=== PATIENT | male | born 1960 | race Caucasian/White ===

== ENCOUNTER → 2016-10-23 | Outpatient (CLI) | payer OTHER | END | disposition home or self-care (01) | LOC: RAD 13:13 | PROVIDERS: ATTEND Anesthesiology | DX: Z01.818 Encounter for other preprocedural examination (principal); M47.892 Other spondylosis, cervical region; M48.02 Spinal stenosis, cervical region; M43.12 Spondylolisthesis, cervical region; M41.84 Other forms of scoliosis, thoracic region; M50.323 Other cervical disc degeneration at C6-C7 level; G89.29 Other chronic pain | CPT/HCPCS: 71020; 72050 ==

== ENCOUNTER 2018-10-13 16:36 | Emergency (ER) | payer OTHER ==
[~2018-10-13] VITALS: Ht 182.9 cm; Wt 61.5 kg
[2018-10-13 16:45] VITALS: BP 140/85
[2018-10-13] MEDS ORDERED: PROPARACAINE OPHTH 0.5%, 15ML EACHEYE ONE (17:00)
[2018-10-13] MEDS ORDERED: PROPARACAINE OPHTH 0.5%, 15ML ONE (17:00)
[2018-10-13] MEDS ORDERED: FLUORESCEIN OPHTHALMIC 1 MG STRIP EACHEYE ONE (17:00)
[2018-10-13] MEDS ORDERED: FLUORESCEIN OPHTHALMIC 1 MG STRIP ONE (17:00)
--- NOTE | 2018-10-13 17:05 | NUR ---
THIS IS A 57 YEAR OLD MALE WHO C/O OF THAT HE WAS GRINDING A METAL PIPE YESTERDAY AND GOT METAL IN EYES BILATERAL
--- NOTE | 2018-10-13 17:27 | NUR ---
Patient/Caregiver given discharge instructions and they have confirmed that they understand the instructions. Patient ambulatory with steady gait.
== END 2018-10-13 17:29 | disposition home or self-care (01) ==
LOC: ED 17:20
DX: T15.02XA Foreign body in cornea, left eye, initial encounter (principal); H16.143 Punctate keratitis, bilateral; X58.XXXA Exposure to other specified factors, initial encounter; Y93.89 Activity, other specified; Y92.89 Other specified places as the place of occurrence of the external cause; Y99.8 Other external cause status
CPT/HCPCS: 65222; 99284

== ENCOUNTER 2019-05-15 09:07 | Emergency (ER) | payer OTHER ==
[~2019-05-15] VITALS: Ht 185.4 cm; Wt 64.9 kg
--- NOTE | 2019-05-15 10:11 | NUR ---
CELL GENETICIST: PT TO ROOM FROM LOBBY.
--- NOTE | 2019-05-15 11:30 | NUR ---
pt does have a gold ring on his finger. unable to get off with lube and string. at this time pt does not want to cut it off.
--- NOTE | 2019-05-15 11:30 | NUR ---
pt awaiting mri. mri checklist filled out and sent to mri
--- NOTE | 2019-05-15 12:25 | NUR ---
pt back from mri now
[2019-05-15 13:03] VITALS: BP 123/80
--- NOTE | 2019-05-15 13:03 | NUR ---
REPORT RECEIVED FROM SADU FERNANDEZ. PT S[facility]ING ON [facility]. NADN. VSS. AWARE OF POC. DENIES NEEDS.
--- NOTE | 2019-05-15 13:53 | NUR ---
MD AT BEDSIDE DISCUSSING POC RE: DC NOW.
--- NOTE | 2019-05-15 13:54 | NUR ---
PT GETTING DRESSED FOR DC NOW. WILL AWAIT DISC FROM RADIOLOGY. Addendum: 05/15/19 at 1355 by JUANITO *AWAITING DISC FROM MRI
== END 2019-05-15 14:58 | disposition home or self-care (01) ==
LOC: ED 11:07
DX: M54.12 Radiculopathy, cervical region (principal); R44.9 Unspecified symptoms and signs involving general sensations and perceptions
CPT/HCPCS: 72141; 99284

== ENCOUNTER 2020-12-28 13:47 | Outpatient (CLI) | payer OTHER | END 2020-12-28 23:59 | disposition home or self-care (01) | LOC: RAD 13:47 → EDSTATUS 14:00 → RAD 23:59 | PROVIDERS: ATTEND Physician Assistant | DX: R10.33 Periumbilical pain (principal) | CPT/HCPCS: 76857 ==

== ENCOUNTER 2021-01-07 14:33 | Outpatient (CLI) | payer OTHER ==
[2021-01-07] MEDS ORDERED: OMNIPAQUE 350 MG/ML, 100ML BOTTLE ONE (15:45)
== END 2021-01-07 23:59 | disposition home or self-care (01) ==
LOC: CFH 14:33
PROVIDERS: ATTEND Physician Assistant
DX: K76.89 Other specified diseases of liver (principal); M51.37 Other intervertebral disc degeneration, lumbosacral region; M41.85 Other forms of scoliosis, thoracolumbar region
CPT/HCPCS: 74177; 82565; Q9967

== ENCOUNTER 2021-01-18 11:27 | Outpatient (CLI) | payer OTHER | END 2021-01-18 23:59 | disposition home or self-care (01) | LOC: RAD 11:27 | PROVIDERS: ATTEND Internal Medicine Hematology & Oncology | DX: R19.05 Periumbilic swelling, mass or lump (principal); C44.509 Unspecified malignant neoplasm of skin of other part of trunk | CPT/HCPCS: 49180; 76942; 88305; 88341; 88342; J3490 ==